=== PATIENT | male | born 1940 ===

== ENCOUNTER 2023-08-27 13:00 | Outpatient (CLI) | payer OTHER ==
[~2023-08-27 13:00] MED LIST: Iopamidol 370 76% 100 ML VIAL ONE
== END 2023-08-27 13:01 | disposition home or self-care (01) ==
LOC: CT 13:00
PROVIDERS: ATTEND Student in an Organized Health Care Education/Training Program
DX: I73.9 Peripheral vascular disease, unspecified (principal); T84.84XA Pain due to internal orthopedic prosthetic devices, implants and grafts, initial encounter; I77.1 Stricture of artery; K40.90 Unilateral inguinal hernia, without obstruction or gangrene, not specified as recurrent; K57.30 Diverticulosis of large intestine without perforation or abscess without bleeding; N40.0 Benign prostatic hyperplasia without lower urinary tract symptoms
CPT/HCPCS: 75635; 82565